=== PATIENT | female | born 1950 | race Caucasian/White ===

== ENCOUNTER 2022-03-31 13:00 | Emergency (ER) | payer OTHER, BC ==
[2022-03-31] MEDS ORDERED: ACETAMINOPHEN 325 MG TABLET (FP) PO ONE (13:22)
[2022-03-31] MEDS ORDERED: ACETAMINOPHEN 325 MG TABLET (FP) ONE (13:24)
[2022-03-31 13:34] VITALS: BP 143/96; PULSE 93; RESP 18; TEMP 98.4; BMI 34.7
== END 2022-03-31 14:12 | disposition home or self-care (01) ==
LOC: FER 13:00
DX: S60.221A Contusion of right hand, initial encounter (principal); W23.1XXA Caught, crushed, jammed, or pinched between stationary objects, initial encounter
CPT/HCPCS: 73130-TC-RT-FY; 99283-25